=== PATIENT | female | born 1955 | race African-American/Black ===

== ENCOUNTER 2017-04-22 09:47 | Outpatient (CLI) | payer OTHER ==
[2017-04-22 12:39] LABS: Hemoglobin A1c 9.3 % (4.0-6.0)
[2017-04-22 12:55] LABS: Anion Gap 15 mmol/L (10-20); BUN (Urea Nitrogen) 16 mg/dL (9.8-20.1); Calc. Creatinine Clearance 0 mL/min (70-130); Calcium 9.6 mg/dL (7.8-10.44); Carbon Dioxide 22 mmol/L (23-31); Chloride 106 mmol/L (98-107); Estimated GFR-MDRD 69; Glucose 148 mg/dL (80-115); Potassium 4.3 mmol/L (3.5-5.1); Sodium 139 mmol/L (136-145)
== END 2017-04-22 09:48 | disposition home or self-care (01) ==
LOC: NAVSJIPCSP 09:47
PROVIDERS: ATTEND Internal Medicine
DX: E11.65 Type 2 diabetes mellitus with hyperglycemia (principal)
CPT/HCPCS: 36415; 80048; 83036

== ENCOUNTER 2020-01-12 12:47 | Outpatient (CLI) | payer OTHER ==
--- NOTE | 2020-01-12 13:35 | RAD ---
PA AND LATERAL VIEWS CHEST: HISTORY Chest pain. COMPARISON: 04/28/2017. FINDINGS: The heart size is normal. The aorta is tortuous. No focal areas of consolidation, pneumothoraces, o r pleural effusions seen. There are degenerative changes in the spine. IMPRESSION: No radiographic evidence of acute cardiopulmonary process. POS: C
[2020-01-12 14:10] LABS: #Basophils 0.1 thou/uL (0.0-0.2); #Eosinphils 0.2 thou/uL (0.0-0.7); #Monocytes 0.7 thou/uL (0.11-0.59); #Neutrophils 4.2 thou/uL (1.40-6.50); %Basophils 0.8 % (0.0-1.0); %Eosinophils 1.8 % (0.0-10.0); %Lymphocytes 43.5 % (21.0-51.0); %Monocytes 7.9 % (0.0-10.0); %Neutrophils 46.1 % (42.0-75.0); Hemoglobin 12.3 g/dL (12.0-16.0); Mean Corpuscular HGB CONC 30.1 g/dL (32.0-36.0); Mean Corpuscular Hemoglobin 26.1 pg (27.0-31.0); Mean Corpuscular Volume 86.7 fL (78.0-98.0); Platelet Count 262 thou/uL (130-400); RBC Distribution Width 13.3 % (11.5-14.5); White Blood Cell (WBC) Count 9.1 thou/uL (4.8-10.8)
[2020-01-12 14:20] LABS: ALT (SGPT) 29 U/L (8-55); AST (SGOT) 20 U/L (5-34); Albumin 4.2 g/dL (3.4-4.8); Alkaline Phosphatase 71 U/L (40-110); Anion Gap 13 mmol/L (10-20); BUN (Urea Nitrogen) 15 mg/dL (9.8-20.1); Bilirubin, Total 0.7 mg/dL (0.2-1.2); Calc. Creatinine Clearance 0 mL/min (70-130); Calcium 9.9 mg/dL (7.8-10.44); Carbon Dioxide 27 mmol/L (23-31); Cardiac Risk 4.4 (Less than 4.5); Chloride 107 mmol/L (98-107); Cholesterol 199 mg/dl (< 200 Desired); Estimated GFR-MDRD 72; Glucose 109 mg/dL (80-115); HDL Cholesterol 45 mg/dL (>60 Neg Risk); LDL Cholesterol, Calculated 132 mg/dL; Potassium 4.4 mmol/L (3.5-5.1); Protein, Total 7.2 g/dL (6.0-8.3); Sodium 143 mmol/L (136-145); Triglycerides 112 mg/dL (Less than 150)
[2020-01-12 14:22] LABS: Troponin I 0.023 ng/mL (< 0.028)
[2020-01-12 21:18] LABS: Hemoglobin A1c 7.8 % (4.0-6.0)
== END 2020-01-12 12:48 | disposition home or self-care (01) ==
LOC: NAV RAD 12:47
PROVIDERS: ATTEND Internal Medicine
DX: R07.1 Chest pain on breathing (principal); I10 Essential (primary) hypertension; E11.65 Type 2 diabetes mellitus with hyperglycemia
CPT/HCPCS: 36415; 71046; 80053; 80061; 83036; 84484; 85025